=== PATIENT | male | born 1935 | race Caucasian/White ===

== ENCOUNTER 2022-01-23 11:04 | Day surgery (SDC) | payer BC ==
[~2022-01-23] VITALS: Ht 185.4 cm; Wt 109.0 kg
[~2022-01-23 11:04] MED LIST: ARFO15VI IH; BUDE0.25 IH; CARB1TAB22 PO; EMPA25TA3 PO; ESCITALOPRAM OX10 MG PO; GLIP5TAB10 PO; HYDROmorphone 2 MG/ML INJ. IVP PRN; IV RINGERS,LACTATED 1000ML 1,000 ML IV SCH; LEUP22.52 IM; MEMA5TAB42 PO; METO-239 PO; MORPHINE SULFATE 2 MG/ML INJ. IVP PRN; NITR0.4T22 SL; PROCHLORPERAZINE 10 MG/2 ML VIAL. IVP PRN; ROFL500T7 PO; TAMS0.4C97 PO; fentaNYL PF VIAL 100 MCG/2 ML VIAL IVP PRN
[2022-01-23 11:45] VITALS: BP 178/101
[2022-01-23] MEDS ORDERED: INSULIN LISPRO 100 UNIT/ML 3ML VIAL for OP,RR ONLY. SQ PRN (12:00)
[2022-01-23] MEDS ORDERED: fentaNYL PF VIAL 100 MCG/2 ML VIAL ONE (12:17)
[2022-01-23] MEDS ORDERED: LIDOCAINE 2% PF 5 ML VIAL. ONE (12:17)
[2022-01-23] MEDS ORDERED: PROPOFOL 10 MG/ML (20ML) VIAL. IV ONE (12:17)
[2022-01-23] MEDS ORDERED: PROPOFOL 50 ML IV ONE (12:28)
[2022-01-23] MEDS ORDERED: SCOPOLAMINE 1.5MG PATCH. TD SCH (12:30)
[2022-01-23] MEDS ORDERED: BUPIVACAINE MPF 0.25% 30 ML VIAL. ONE (12:48)
[2022-01-23] MEDS ORDERED: BUPIVACAINE MPF 0.25% 30 ML VIAL. INJ ONE (12:58)
[2022-01-23] MEDS ORDERED: ONDANSETRON PF 4 MG/2 ML VIAL. ONE (12:58)
[2022-01-23] MEDS ORDERED: DEXAMETHASONE SOD PHOS 4 MG/ML VIAL ONE (12:58)
[2022-01-23] MEDS ORDERED: BACITRACIN TOPICAL OINT PACKET. TP ONE (13:02)
--- NOTE | 2022-01-23 13:40 | PDOC4 ---
OPERATIVE NOTE Date: Date: January 23, 2022 Pre-Op Diagnosis: Phimosis Post-Op Diagnosis: same Procedure Performed: Dorsal slit circumcision Surgeon: Dominguez Hudson MD Anesthesia Type: General Blood Loss: 5cc Specimans Obtained: none Findings: Phimosis extending past prior circumcision incision Complications: none Operative Note: The patient was taken to the OR on the above date after informed consent. General anesthesia was administered and the patient placed in the supine position and prepped and draped. Local anesthetic was delivered for a wide penile block. I then made a dorsal slit past the phimotic ring and scar of the prior incision from his circumcision. This was extended down around 5 cm. I then closed the incision by bringing the apex together vertically which allowed exposure of the glans. The quadrant of the incision was closed with 3-0 chromic and then ran with a 4-0 chromic in a running horizontal mattress suture. Dressing was then applied. The patient tolerated the procedure well then taken to the recover in stable condition after being awoken from anesthesia. Plan: DC home, local wound care instructions provided. RTC in 2 weeks CARL HUDSON MD January 23, 2022 13:40
[2022-01-23 14:15] VITALS: BP 160/90
== END 2022-01-23 14:35 | disposition home or self-care (01) ==
LOC: SURG 11:04
PROVIDERS: ATTEND Urology
DX: N47.1 Phimosis (principal); I10 Essential (primary) hypertension; E78.00 Pure hypercholesterolemia, unspecified; E11.9 Type 2 diabetes mellitus without complications; G47.30 Sleep apnea, unspecified; K21.9 Gastro-esophageal reflux disease without esophagitis; M19.90 Unspecified osteoarthritis, unspecified site; F41.9 Anxiety disorder, unspecified; F32.9 Major depressive disorder, single episode, unspecified; Z87.440 Personal history of urinary (tract) infections; Z90.49 Acquired absence of other specified parts of digestive tract; Z98.890 Other specified postprocedural states; Z79.899 Other long term (current) drug therapy; Z87.891 Personal history of nicotine dependence; Z88.0 Allergy status to penicillin; Z88.8 Allergy status to other drugs, medicaments and biological substances
CPT/HCPCS: 54161; 82962; A4930; J0690; J1100; J2405; J2704; J3010; J3490; A4223